=== PATIENT | male | born 1980 | race Two or more races ===

== ENCOUNTER 2023-05-08 19:12 | Outpatient (CLI) | payer MEDICAID | END 2023-05-08 23:59 | disposition critical access hospital (66) | LOC: EMS 19:12 | DX: R10.84 Generalized abdominal pain (principal) | CPT/HCPCS: A0425; A0429; A0999 ==

== ENCOUNTER 2023-05-08 19:32 | Emergency (ER) | payer MEDICAID, OTHER ==
--- NOTE | 2023-05-08 19:45 | ED Physician Documentation ---
PD HPI MALE - Stated complaint Stated Complaint: URINARY RETENTION - History obtained from History obtained from: Patient - Additional information Additional information: 42-year-old male who has a history of fentanyl and methamphetamine use and was taken to a to a [facility] drug treatment and apparently could not void. He states he had voided just prior to going in And had not drink that much water today and then they waited about 2 and half hours and he was still unable to void and was complaining for mild abdominal pain therefore he was sent him to the ER. He has not had a fever or chills, no nausea vomiting diarrhea constipation, no back pain. He denies any concern for STI. On arrival here, the patient states he thinks he can void now And he does not have any abdominal pain at this time. Denies any scrotal pain or swelling, no penile discharge and no concern for STI. Review of Systems Cardiac: reports: Reviewed and negative Respiratory: reports: Reviewed and negative GI: reports: Reviewed and negative : reports: Unable to Void. denies: Dysuria, Frequency, Hesitancy, Incontinent, Hematuria, Testicular pain, Testicular mass Skin: reports: Reviewed and negative Musculoskeletal: reports: Reviewed and negative PD PAST MEDICAL HISTORY - Past Medical History Past Medical History: Yes Other Past Medical History: Narcotic abuse - Allergies Allergies/Adverse Reactions: Allergies Allergy/AdvReac Type Severity Reaction Status Date / Time No Known Drug Allergies Allergy Verified 05/08/23 19:46 PD ED PE NORMAL - Vitals Vital signs reviewed: Yes - General General: Alert and oriented X 3, No acute distress, Well developed/nourished - HEENT HEENT: Atraumatic, Moist mucous membranes - Cardiac Cardiac: RRR, No murmur - Abdomen Abdomen: Normal bowel sounds, Soft, Non distended, Other (Mild suprapubic tenderness.) - Back Back: No CVA TTP, No spinal TTP - Derm Derm: Normal color, Warm and dry, No rash Results - Vitals Vitals: Vital Signs - 24 hr 05/08/23 19:39 Temperature 35.9 C L Heart Rate 66 Respiratory 16 Rate Blood Pressure 160/99 H O2 Saturation 100 Oxygen O2 Source Room air - Labs Labs: Laboratory Tests 05/08/23 19:51 Urine Color YELLOW Urine Clarity CLEAR Urine pH 6.0 Ur Specific [place] <=1.005 Urine Protein NEGATIVE Urine Glucose (UA) NEGATIVE Urine Ketones NEGATIVE Urine Occult Blood NEGATIVE Urine Nitrite NEGATIVE Urine Bilirubin NEGATIVE Urine Urobilinogen 0.2 (NORMAL) Ur Leukocyte Esterase NEGATIVE Ur Microscopic Review NOT INDICATED Urine Culture Comments NOT INDICATED PD Medical Decision Making - ED course Complexity details: reviewed results, considered differential, d/w patient ED course: 42-year-old male presents from a drug treatment center after he was unable to void for a period of time. The patient was able to void however shortly after arrival and he states it felt fine and he feels fine now. He believes that he just was a little bit dehydrated earlier today and had voided right prior to going into the intake center. He did not have any dysuria he denies any concern for STI. I will send it for gonorrhea and chlamydia given his history of polysubstance abuse but no symptoms of STI and his urinalysis is negative for urinary tract infection. The patient is not having any significant abdominal pain at this time, tolerating p.o. well stable vital signs and is stable for return to his drug treatment center. Return precautions reviewed if new or worsening symptoms. Departure - Departure Disposition: 01 Home, Self Care Clinical Impression: Acute urinary retention Condition: Good Instructions: ED Retention Urinary Male Comments: Your urine test is normal today. I will send it for gonorrhea chlamydia test to check for this though you are not having symptoms of this. We will notify you if treatment needed. Please continue treatment at [facility]. Forms: PCP List
[2023-05-08 19:50] VITALS: BP 160/99; O2SAT 100
[2023-05-08 20:00] LABS: BILIRUBIN,URINE NEGATIVE (NEGATIVE); GLUCOSE, URINE (UA) NEGATIVE (NEGATIVE); KETONES,URINE (UA) NEGATIVE (NEGATIVE); LEUKOCYTE ESTERASE, URINE NEGATIVE (NEGATIVE); NITRITE,URINE NEGATIVE (NEGATIVE); OCCULT BLOOD,URINE NEGATIVE (NEGATIVE); PROTEIN,URINE NEGATIVE (NEGATIVE); UROBILINOGEN,URINE 0.2 (NORMAL) E.U./dL (NORMAL)
[2023-05-08 20:09] LABS: CLARITY,URINE CLEAR (CLEAR)
[2023-05-08 23:44] LABS: CHLAMYDIA TRACHOMATIS DNA NEGATIVE (NEGATIVE); NEISSERIA GONORRHOEAE DNA NEGATIVE (NEGATIVE); TRICHOMONAS VAGINALIS DNA NEGATIVE (NEGATIVE)
== END 2023-05-08 20:30 | disposition home or self-care (01) ==
LOC: ED 19:32
DX: R33.9 Retention of urine, unspecified (principal)
CPT/HCPCS: 81001; 81003; 87086; 87491; 87591; 87661; 99283